=== PATIENT | female | born 1985 ===

== ENCOUNTER 2017-02-25 06:03 | Day surgery (SDC) | payer BC ==
[~2017-02-25] VITALS: Ht 167.6 cm; Wt 90.7 kg
[2017-02-25] VITALS (11 sets, daily range): BP systolic 103–116; BP diastolic 55–73
[~2017-02-25 06:03] MED LIST: NKM
[2017-02-25] MEDS ORDERED: LR 1000ml 1,000 ML IV SCH (06:30)
--- NOTE | 2017-02-25 06:55 | Pre-Procedure Note/Attestation ---
Pre-Procedure Note/Attestation Complete Prior to Procedure Planned Procedure: left Procedure Narrative: Left knee arthroscopy with ACL reconstruction Indications for Procedure Pre-Operative Diagnosis: Left knee ACL tear Attestation I attest that I discussed the nature of the procedure; its benefits; risks and complications; and alternatives (and the risks and benefits of such alternatives ), prior to the procedure, with the patient (or the patient's legal fundraising sale representative). I attest that, if there was a reasonable possibility of needing a blood transfusion, the patient (or the patient's legal fundraising sale representative) was given the [facility] standardized written summary, pursuant to the [place] Blood Safety Act ([place] Health and Safety Code # 1645, as amended). I attest that I re-evaluated the patient just prior to the surgery and that there has been no change in the patient's H&P, except as documented below: BRIGETTE ARROYO Feb 25, 2017 06:55
[2017-02-25] MEDS ORDERED: EPINEPHrine 1mg/1ml Amp ONE ×2 (07:00→08:54)
[2017-02-25] MEDS ORDERED: Bupivacaine w/Epi 0.25% 30ml Vial INJ ONE (07:00)
[2017-02-25] MEDS ORDERED: Ropivacaine 5mg/ml Vial 20ml INJ ONE (07:00)
[2017-02-25] MEDS ORDERED: Ketorolac 30mg Inj ONE (07:30)
[2017-02-25] MEDS ORDERED: fentaNYL 100 mcg/2 mL IV ONE (07:30)
[2017-02-25] MEDS ORDERED: LR 1000ml ONE (07:30)
[2017-02-25] MEDS ORDERED: Midazolam 2mg/2ml Inj ONE (07:30)
[2017-02-25] MEDS ORDERED: Propofol 10mg/ml 20ml IV ONE (07:30)
[2017-02-25] MEDS ORDERED: Sterile Water Irrig 1000ml IRRIG ONE (07:30)
[2017-02-25] MEDS ORDERED: Morphine Sulfate 10mg/ml Inj ONE (07:30)
[2017-02-25] MEDS ORDERED: LR 1000ml 1,000 ML IVLG SCH (08:29)
--- NOTE | 2017-02-25 08:29 | Anethesia Preoperative Eval ---
Anesthesia Pre-op PMH/ROS General Date of Evaluation: Feb 25, 2017 Time of Evaluation: 07:10 Anesthesiologist: Tiera ASA Score: ASA 2 Mallampati Score Class I : Soft palate, uvula, fauces, pillars visible Class II: Soft palate, uvula, fauces visible Class III: Soft palate, base of uvula visible Class IV: Only hard plate visible Mallampati Classification: Class II Surgeon: Victorino Diagnosis: L knee torn ACL Surgical Procedure: L arthroscopic ACL repair Anesthesia History: none Family History: no anesthesia problems Allergies: Coded Allergies: No Known Allergies (Unverified , 02/24/17) Medications: see eMAR Past Medical History Cardiovascular: Denies: CAD, HTN, [place], arrhythmia, other, valve dz Pulmonary: Denies: COPD, MALCOLM, asthma, other Gastrointestinal/Genitourinary: Reports: GERD - mild, Denies: CRI, ESRD, other Neurologic/Psychiatric: Denies: CVA, TIA, dementia, depression/anxiety, other Endocrine: Denies: DM, hypothyroidism, other, steroids HEENT: Denies: [place] (L), [place] (R), cataract (L), cataract (R), glaucoma, other Hematology/Immune: Denies: DVT, anemia, bleeding disorder, other Musculoskeletal/Integumentary: Denies: DDD, DJD, OA, RA, edema, other Other: other - overweight PMH Narrative: as above PSxH Narrative: Rhinoplasty T&A Anesthesia Pre-op Phys. Exam Physician Exam Last Vital Signs Date Time Temp Pulse Resp B/P Pulse Ox O2 Delivery O2 Flow Rate FiO2 02/25/17 06:22 98.0 89 18 115/70 99 Room Air Constitutional: NAD Neurologic: CN 2-12 intact Cardiovascular: RRR, no M/R/G Respiratory: CTA Gastrointestinal: S/NT/ND Airway Exam Mallampati Score: Class II MO: full Neck: flexible ROM: full Teeth: intact Dentures: no lower, no upper Anesthesia Pre-op A/P Labs see chart Urine Test Test 02/25/17 06:15 Urine HCG, Qualitative Negative Risk Assessment & Plan Assessment: ASA 2 Plan: GA with LMA L femoral nerve block for postoperative pain control Status Change Before Surgery: No Pre-Antibiotics Drug: Ancef 2 gr. Given Within 1 Hr of Incision: Yes Time Given: 08:01 OLGA LEMOS M.D. Feb 25, 2017 08:29
[2017-02-25] MEDS ORDERED: Hydromorphone 0.5mg/0.5ml inj IVP PRN (08:30)
[2017-02-25] MEDS ORDERED: Meperidine 25mg/0.5ml Inj IV PRN (08:30)
[2017-02-25] MEDS ORDERED: DiphenhydrAMINE 50mg/ml Inj IVP PRN (08:30)
[2017-02-25] MEDS ORDERED: Ketorolac 30mg Inj IV PRN (08:30)
[2017-02-25] MEDS ORDERED: Metoclopramide 10mg/2ml Inj IVP PRN (08:30)
--- NOTE | 2017-02-25 10:06 | Immediate Post-Op Evaluation ---
Immediate Post-Op Evalulation Immediate Post-Op Evalulation Procedure: L arthroscopic ACL repair Date of Evaluation: Feb 25, 2017 Time of Evaluation: 10:05 IV Fluids: 1200 Blood Products: n0ne Estimated Blood Loss: 100 Urinary Output: n0ne Blood Pressure Systolic: 113 Blood Pressure Diastolic: 58 Pulse Rate: 87 Respiratory Rate: 20 O2 Sat by Pulse Oximetry: 97 Temperature (Fahrenheit): 97.6 Pain Score (1-10): 2 Nausea: No Vomiting: No Complications none Patient Status: reacts, patent, none Hydration Status: adequate OLGA LEMOS M.D. Feb 25, 2017 10:06
--- NOTE | 2017-02-25 13:22 | 48 Hour Post Anesthesia Eval ---
Post Anesthesia Evaluation Procedure: L arthroscopic ACL repair Date of Evaluation: Feb 25, 2017 Time of Evaluation: 13:20 Blood Pressure Systolic: 116 0: 56 Pulse Rate: 72 Respiratory Rate: 20 Temperature (Fahrenheit): 97.6 O2 Sat by Pulse Oximetry: 99 Airway: patent Nausea: No Vomiting: No Pain Intensity: 2 Hydration Status: adequate Cardiopulmonary Status: stable Mental Status/LOC: patient returned to baseline Follow-up Care/Observations: N/A Post-Anesthesia Complications: none Follow-up care needed: ready to discharge OLGA LEMOS M.D. Feb 25, 2017 13:22
[2017-02-25] MEDS ORDERED: Tylenol #3 tab (300mg/30mg) ORAL PRN (14:30)
[2017-02-25] MEDS ORDERED: HYDROmorphone 1mg/ml Carpuject SUBQ PRN (14:30)
[2017-02-25] MEDS ORDERED: Norco 5mg/325mg tab ORAL PRN (14:30)
[2017-02-25] MEDS ORDERED: D5 1/2NS 1,000 ML IV SCH (14:30)
--- NOTE | 2017-02-25 17:00 | Operative Note - Dictated ---
DATE OF OPERATION: 02/25/2017 SURGEON: Sky Gleason M.D. HOME RESTORATION SERVICE SUPERVISOR: None. ANESTHESIA: Regional plus general plus local. COMPLICATIONS: None. ANTIBIOTICS: Ancef. PREOPERATIVE DIAGNOSES: Left knee: 1. Anterior cruciate ligament rupture (chronic). 2. Large complex macerated medial meniscus tear. POSTOPERATIVE DIAGNOSES: Left knee: 1. Anterior cruciate ligament rupture (chronic). 2. Large complex macerated medial meniscus tear. PROCEDURE PERFORMED: Left knee arthroscopy with: 1. Arthroscopically-assisted anterior cruciate ligament allograft reconstruction using posterior tibialis tendon and a 11 mm AperFix femoral fixation and a 11 mm PEEK sheath tibial screw fixation. TOURNIQUET TIME: None. BACKGROUND: The patient sustained an anterior cruciate ligament tear and a concomitant meniscus tear and had an unstable knee. All risks, benefits, and alternatives to surgical intervention were discussed in great detail. Risks included, but were not limited to, bleeding, infection, neurovascular injury, need for additional surgical intervention, failure of pain relief, arthrofibrosis, complications of anesthesia, blood clots, stroke, heart attack, and potentially . She understood these risks, amongst others, and consent was signed. PROCEDURE IN DETAIL: The patient was brought in to the operating room and placed supine on the operating table. Performed regional block and general anesthesia was induced. A 2 g of Ancef were given. Examination under anesthesia revealed 2+ pivot shift and 2+ Rima on the left knee compared to trace and physiologic on the right. There is no effusion. Anterolateral and anteromedial portals were marked and injected with 20 mL 0.25% Marcaine with epinephrine. A diagnostic arthroscopy was then undertaken. It revealed the followin. Normal suprapatellar pouch. 2. Normal patellofemoral articulation. 3. Normal medial gutter. 4. Normal lateral gutter. 5. Normal lateral compartment. 6. Normal lateral meniscus. 7. Ruptured ACL. 8. Normal PCL. 9. Normal medial compartment. 10. Large complex bucket handle macerated tear of the medial meniscus extending to the middle aspect of the middle horn. In the medial compartment, the macerated tear was resected. A 40% to 50% of the meniscus was resected because of the tear involvement. It was irreparable. Once resected to a stable border, the remainder of the meniscus was tested with a probe and found to be stable. Attention was then turned to the notch. Using a radiofrequency device to clear the [id number] position and the footprint in the tibia of the anterior cruciate ligament remnant, a radiofrequency device was used. Once cleared, a tibial guide was used to appropriately position the tibial tunnel. The graft was prepared on the back table and placed on 15 pounds of tension for 15 minutes. It passed through a 10 mm test tunnel and therefore a 11 mm drill was used both in the tibia and in the femur. Once the tibial tunnel was drilled, an [id number] positioner was used to secure a 1.5 mm posterior cortical border. Femoral tunnel was drilled to 31 mm and all fluid and debri were evacuated from the bone tunnels. Videography confirmed no cortical embarrassment in either the tunnel. The graft was loaded onto the upper fixed device and it was deployed under direct visualization. With appropriate tension, the peak sheath and screw were placed in the tibia. Throughout a full range of motion, there was isometry and excellent anatomic positioning of the anterior cruciate ligament graft. There was no impingement on either condyle throughout a full range of motion. There was no impingement in full extension. Tension was excellent and tested with a probe. All fluid and debri were evacuated from the knee and 10 mL of 0.25% Marcaine with epinephrine were injected. The wounds were copiously irrigated and reapproximated using 4-0 Monocryl in subcuticular fashion. Steri-Strips were used over Mastisol. A dry sterile dressing was applied. A compressive wrap was secured. A knee immobilizer was fitted. There were no complications. I attest that I performed the entire operation. She was transferred to recovery in good condition. Sky Gleason M.D. ([facility]) DR: CHARY JOB#: [id number] CC:
== END 2017-02-25 12:20 | disposition home or self-care (01) ==
LOC: SUR 06:03
DX: S83.512A Sprain of anterior cruciate ligament of left knee, initial encounter (principal); S83.212A Bucket-handle tear of medial meniscus, current injury, left knee, initial encounter; X58.XXXA Exposure to other specified factors, initial encounter; Y92.89 Other specified places as the place of occurrence of the external cause; Y99.9 Unspecified external cause status; K21.9 Gastro-esophageal reflux disease without esophagitis; E66.3 Overweight
CPT/HCPCS: 29881; 29888; 81025; 87070; 87075; 87205; 97161; J0171; J0690; J1885; J2250; J2270; J2405; J2704; J2795; J3010; J7120; 94003; 94150